=== PATIENT | female | born 1950 | race Caucasian/White ===

== ENCOUNTER → 2021-04-13 17:04 | Outpatient (CLI) | payer MEDICARE, SELFPAY | PROVIDERS: Visit Provider Internal Medicine Gastroenterology | DX: Z01.812 Encounter for preprocedural laboratory examination (principal); Z11.52 Encounter for screening for COVID-19 | CPT/HCPCS: C9803; U0003; U0005 ==

== ENCOUNTER 2024-10-07 21:48 | Emergency (ER) | payer MEDICARE, SELFPAY ==
[2024-10-07 21:58] VITALS: BP 171/84; PULSE 84; RESP 16; TEMP 36.8; O2SAT 95; BMI 19.5
--- NOTE | 2024-10-07 22:15 | CT_ITS ---
PROCEDURE INFORMATION: Exam: CT Abdomen And Pelvis With Contrast Exam date and time: 10/07/2024 11:40 PM Age: 73 years old Clinical indication: Vomiting; Abdominal pain; Other: Right sided; Additional info: R sided severe abd pain, vomiting TECHNIQUE: Imaging protocol: Computed tomography of the abdomen and pelvis with contrast. Radiation optimization: All CT scans at this facility use at least one of these dose optimization techniques: automated exposure control; mA and/or kV adjustment per patient size (includes targeted exams where dose is matched to clinical indication); or iterative reconstruction. Contrast material: ISOVUE; Contrast volume: 75 ml; Contrast route: IV; COMPARISON: No relevant prior studies available. FINDINGS: Liver: No mass. Gallbladder and biliary ducts: Surgically absent gallbladder. Intrahepatic extrahepatic pneumobilia. No radiopaque choledocholithiasis identified. Pancreas: Atrophic pancreas. No ductal dilatation. No mass. Spleen: 3.8 cm splenule. No splenomegaly. Adrenal glands: Normal. No mass. Kidneys and ureters: 0.9 cm right mid ureteral calculus with proximal hydronephroureter. Small right perinephric fluid collection. 4.2 cm right upper pole cyst. 0.5 cm nonobstructive left renal calculus. No hydronephrosis. Stomach and bowel: Nonobstructive pattern. Nonspecific fluid-filled Racquel's pouch. Left lower quadrant ostomy. Appendix: Not visualized. Intraperitoneal space: Unremarkable. No free air. No significant fluid collection. Vasculature: Unremarkable. No abdominal aortic aneurysm. Lymph nodes: Unremarkable. No enlarged lymph nodes. Urinary bladder: Patulous, distended urinary bladder with irregular wall trabeculation, without obvious pericystic fat stranding. Reproductive: Unremarkable as visualized. Bones/joints: Unremarkable. No acute fracture. Soft tissues: Probable postsurgical granulation/scarring of presacral space. IMPRESSION: 1. 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 Nonobstructive left renal calculus. 2. Intrahepatic and extrahepatic pneumobilia, without radiopaque choledocholithiasis, likely reflecting post cholecystectomy changes and incompetent sphincter of Oddi. 3. Distended, patulous, trabeculated urinary bladder without pericystic fat stranding, likely reflecting sequelae of chronic urinary bladder outlet obstruction, without evidence for cystitis. COMMENTS: Consistent with the [employer]'s Incidental Findings Committee white paper (J Am Jose Radiol 2018): Any incidental renal lesion less than 1 cm or classified as too small to characterize, or any incidental cystic renal lesion characterized as simple-appearing, is likely benign. No follow-up imaging is recommended for these lesions per consensus recommendations based on imaging criteria.
[2024-10-07] MEDS: ONDANSETRON 4MG/2ML VIAL 4 MG IV (22:21)
[2024-10-07] MEDS: MORPHINE 4MG/ML SYRINGE 4 MG IV (22:21)
[2024-10-07] MEDS: 0.9 % SODIUM CHLORIDE 1000ML 1,000 ML 999 ML IV (22:21)
[2024-10-07 22:23] LABS: Basophils % 0.3 % (0.1-2.0); Eosinophils % 0.2 % (0.1-12.0); Hematocrit 37.2 % (37.0-47.0); Hemoglobin 13.1 g/dL (12.2-16.2); Immature Granulocytes # 0.05 10^3uL; Immature Granulocytes % 0.4 %; Lymphocytes # 0.3 K/mm3 (0.7-4.5); Mean Corpuscular HGB Conc 35.2 g/dL (31.8-35.4); Mean Corpuscular Volume 88.2 fl (81-99); Mean Platelet Volume 9.7 fl (7.4-10.4); Monocytes # 0.7 K/mm3 (0.1-1.0); Monocytes % 5.8 % (1.7-9.3); Neutrophils # 11.7 K/mm3 (1.8-7.8); Neutrophils % 91.3 % (37.0-80.0); Nucleated Red Blood Cells # 0 10^3/uL; Nucleated Red Blood Cells % 0 %; Platelet Count 161 K/mm3 (142-424); Red Blood Count 4.22 M/mm3 (4.20-5.40); Red Cell Distribution Width 12.7 % (11.5-17.5); Red Cell Distribution Width-SD 40.9 fL; White Blood Count 12.8 K/mm3 (4.8-10.8)
[2024-10-07 22:24] LABS: MANUAL DIFFERENTIAL MANUAL DIFFERENTIAL (MANUAL DIFF)
--- NOTE | 2024-10-07 22:28 | ED_ITS ---
Discharge Plan Disposition Patient Disposition: Xfer Other Chief Complaint: Abdominal Pain Prescriptions Prescriptions: No Action famotidine [Acid Controller] 20 MG Tablet 20 mg PO BID primidone [Mysoline] 50 MG Tablet 50 mg PO HS atorvastatin 20 MG Tablet 20 mg PO DAILY cyanocobalamin (vitamin B-12) 2,500 MCG Tab.Subl 2,500 mcg sublingual DAILY vitamin A 25,000 UNIT Capsule 25,000 unit PO DAILY bisoprolol-hydrochlorothiazide 1 EACH Tablet 1 ea PO DAILY acetaminophen [Tylenol Arthritis Pain] 650 MG Tablet.Er 650 mg PO NEEDED PRN (Reason: pain) meloxicam 7.5 MG Tablet 7.5 mg PO HS potassium 99 MG Tablet 99 mg PO 5XDAY levothyroxine 50 MCG Tablet 50 mcg PO DAILY gabapentin 300 MG Capsule 300 mg PO BID ascorbic acid (vitamin C) 1,000 MG Tab.Chew 1,000 mg PO DAILY ginseng 250 MG Capsule 250 mg PO BID iron 18 MG Tablet 18 mg PO QID esther efxlkt-Qd-wrcCvozayqrt-tea [Apple Cider Vinegar Plus] 1 EACH Tablet 1 ea PO TID metformin [Fortamet] 1,000 MG Tab.Er.24 1,000 mg PO BID duloxetine 30 MG Capsule.Dr 30 mg PO DAILY B complex-vitamin C-folic acid 400 MCG Tablet 400 mcg PO DAILY cholecalciferol (vit D3)(bulk) 2,400 UNIT/ML Liquid 2,400 unit miscellaneous QID turmeric root extract 500 MG Capsule 500 mg PO DAILY calcium carb,gluc-mag gluc,ox [Calcium Magnesium] 1 EACH Tablet 1 ea PO TID ascorbic acid-vitamin E-biotin [Hair, Skin, Nails with Biotin] 1 EACH Tab.Chew 1 ea PO DAILY xssjg-af-9-eue-gzk-vnflcdk-ast [MegaRed [place]-3 Krill Oil] 1 EACH Capsule 1 ea PO DAILY Referrals Follow up/Referrals: Faheem Chase [Primary Care Provider] - See instructions Clinical Impressions Clinical Impression: Hydronephrosis with ureteral calculus, Pyelonephritis Instructions Patient Instructions: DI for Acute Abdominal Pain Print Language Print Language: [place] Island[place] Discharge ED Provider: Neil Steele General Adult HPI <Peter Yu MD - Last Filed: 10/07/24 23:26> General Chief complaint: Abdominal Pain Stated complaint: weakness,pain right side waist line area Time Seen by Provider: 10/07/24 21:56 Mode of Arrival: Wheelchair Source of Information: Patient and Relative Description of Symptoms (Recalled from ER Triage Doc. by RN): pt presents with c/o right sided abd pain that radiates into her back that began x1 day ago. Pt reports associated nausea with no vomiting or diarrhea. 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 Consequentially, this preceding description of symptoms, which may include the patient's categorized chief complaint in the EMR, do not reflect my personal clinical impression, and the ultimate description of history of present illness and patient stated complaints should be deferred to this section of the note. Unless stated otherwise or congruent with this section of the note, additional signs, symptoms, or incongruence should be interpreted as inaccurate with my clinical impression. Related Data Home Medications ?Medication ?Instructions ?Recorded ?Confirmed acetaminophen 650 mg 650 mg PO NEEDED PRN pain 04/11/18 04/11/18 tablet,extended release (Tylenol Arthritis Pain) ascorbic acid (vitamin C) 1,000 mg 1,000 mg PO DAILY Supplement 04/11/18 04/11/18 chewable tablet ascorbic acid 7.5 mg-vit E 7.5 1 ea PO DAILY Supplement 04/11/18 04/11/18 unit-biotin 1,250 mcg chewable tablet (Hair,Skin,Nails with Biotin) atorvastatin 20 mg tablet 20 mg PO DAILY Cholesterol 04/11/18 04/11/18 bisoprolol 10 1 ea PO DAILY blood pressure 04/11/18 04/11/18 mg-hydrochlorothiazide 6.25 mg tablet calcium 500 mg 1 ea PO TID Supplement 04/11/18 04/11/18 (carb,gluconate)-magnesium 250 mg (gluc,oxide) tablet (Calcium Magnesium) cholecalciferol (vit D3)(bulk) 2,400 unit miscellaneous QID 04/11/18 04/11/18 2,400 unit/mL liquid Supplement cider 1 ea PO TID Supplement 04/11/18 04/11/18 mugczqu-Gk-ricxjtxcsbvwnuro-tea 500 mg-100 mcg-300 mg-60 mg tab (Apple Cider Vinegar Plus) cyanocobalamin (vitamin B-12) 2,500 mcg sublingual DAILY 04/11/18 04/11/18 2,500 mcg sublingual tablet Supplement duloxetine 30 mg capsule,delayed 30 mg PO DAILY mood 04/11/18 04/11/18 release famotidine 20 mg tablet (Acid 20 mg PO BID stomach 04/11/18 04/11/18 Controller) gabapentin 300 mg capsule 300 mg PO BID Pain 04/11/18 04/11/18 ginseng 250 mg capsule 250 mg PO BID Supplement 04/11/18 04/11/18 iron 18 mg tablet 18 mg PO QID Supplement 04/11/18 04/11/18 krill 300 mg-omega 3 90 mg-dha 24 1 ea PO DAILY Supplement 04/11/18 04/11/18 mg-epa 50 ql-fyfndfk-lqhxn capsule (MegaRed [place]-3 Krill Oil) levothyroxine 50 mcg tablet 50 mcg PO DAILY thyroid 04/11/18 04/11/18 meloxicam 7.5 mg tablet 7.5 mg PO HS Pain 04/11/18 04/11/18 metformin 1,000 mg tablet,extended 1,000 mg PO BID Diabetes 04/11/18 04/11/18 release 24hr (osmotic) (Fortamet) potassium 99 mg tablet 99 mg PO 5XDAY Supplement 04/11/18 04/11/18 primidone 50 mg tablet (Mysoline) 50 mg PO HS hormones 04/11/18 04/11/18 turmeric root extract 500 mg 500 mg PO DAILY Supplement 04/11/18 04/11/18 capsule vitamin A 7,500 mcg (25,000 unit) 25,000 unit PO DAILY Supplement 04/11/18 04/11/18 capsule vitamin B complex-vitamin C-folic 400 mcg PO DAILY Supplement 04/11/18 04/11/18 acid 400 mcg tablet Allergies Allergy/AdvReac Type Severity Reaction Status Date / Time acetaminophen Allergy Intermediate I-HIVES Verified 04/11/18 09:23 chlorpheniramine Allergy Intermediate I-HIVES Verified 04/11/18 09:23 naproxen Allergy Intermediate I-ITCHING Verified 04/11/18 09:23 pseudoephedrine Allergy Intermediate I-HIVES Verified 04/11/18 09:23 guaifenesin Allergy Unknown Verified 04/11/18 09:23 [facility] <Peter Yu MD - Last Filed: 10/07/24 23:26> [facility] Disclaimer: The information contained in this section may have been updated after the patient was seen, as this information can be updated by other users. Social History (Updated 10/07/24 @ 23:26 by Peter Yu MD) Smoking Status: Never smoker alcohol intake: never current occupational status: retired Travel in the last 8 weeks?: None caffeine: No Have you lived/traveled outside [place] in past 30 days?: No Contact w/someone who lives/traveled outside US past 30 days?: No Exposure to someone with infectious disease in past 14 days?: No Do you have a fever (greater than 100.4 F or 38 C)?: No Have you tested positive for COVID-19?: No Exposed to someone with COVID-19 in past 14 days?: No Do you have a sore throat?: No Do you have a cough?: No Do you have any weakness?: Yes Do you have any diarrhea?: No Are you experiencing any unusual bleeding?: No Do you have any muscle aches/pain?: No Do you have any abdominal pain?: No Are you experiencing loss of taste or smell?: No <Peter Yu MD - Last Filed: 10/07/24 23:26> ROS Obtained: Yes All systems reviewed & no additional complaints except as documented Physical Exam <Peter Yu MD - Last Filed: 10/07/24 23:26> General General appearance: alert Head Head exam: atraumatic and normocephalic Eye Eye exam: Present normal appearance, PERRL and EOMI Neck Neck exam: Present normal inspection, full ROM and trachea midline Respiratory Respiratory exam: Absent respiratory distress, wheezes, stridor, accessory muscle use or prolonged expiratory phase Cardiovascular Cardiovascular exam: Present other (Pulses equal symmetric in upper and lower extremities) Abdominal Exam Abdominal exam: Present soft; Absent distention, tenderness or pulsatile mass Extremities Exam Extremities exam: Absent edema Neurological Exam Neurological exam: Present alert, oriented X3 and CN II-XII intact; Absent motor sensory deficit Skin Skin exam: Present warm and dry; Absent diaphoresis or erythema Medical Decision Making <Peter Yu MD - Last Filed: 10/07/24 23:26> Medical Records Medical records reviewed: Yes I reviewed the patient's medical records. Screening: Per USPSTF and CDC recommendations, given the prevalence of disease in our region, it is our hospital?s policy to screen for HIV and viral Hepatitis for all patients aged 18 and over and those with ongoing risk factors. Edson Inquiry Pt receiving controlled substance: No Edson was queried for this patient: No Vital Signs: 10/07/24 21:58 10/07/24 23:30 Temperature 98.3 F Temperature Source Oral Pulse Rate 90 Pulse Rate [Radial] 84 Respiratory Rate 16 Blood Pressure 161/88 H Blood Pressure [Right Arm] 171/84 H Blood Pressure Mean [Right Arm] 113 Blood Pressure Position [Right Arm] Sitting 02 Sat by Pulse Oximetry 95 100 Oxygen Delivery Method Room Air Lab Data Lab Results 10/07/24 22:04: WBC 12.8 H, RBC 4.22, Hgb 13.1, Hct 37.2, MCV 88.2, MCH 31.0, MCHC 35.2, RDW 12.7, Plt Count 161, MPV 9.7, Neut % (Auto) 91.3 H, Lymph % (Auto) 2.0 L, [place] % (Auto) 5.8, Eos % (Auto) 0.2, Baso % (Auto) 0.3, Neut # (Auto) 11.7 H, Lymph # (Auto) 0.3 L, [place] # (Auto) 0.7, Eos # (Auto) 0.0, Baso # (Auto) 0.0, Total Counted 100, Neutrophils % (Manual) 88 H, Lymphocytes % (Manual) 3 L, Monocytes % (Manual) 8, Eosinophils % (Manual) 1, Platelet Estimate Normal, RBC Morphology Normal, PT 10.9, INR 0.97, APTT 27.5, Sodium 130 L, Potassium 4.3, Chloride 103, Carbon Dioxide 19 L, Anion Gap 12.3, BUN 26 H, C reatinine 2.10 H, Estimated Creat Clear 19, Estimated GFR 23 L, Est GFR ( Amer) 28 L, Glucose 331 H, Hemoglobin A1c 7.7 H, Calcium 8.9, Magnesium 1.1 L, Total Bilirubin 0.9, AST 29, ALT 33, Alkaline Phosphatase 161 H, Troponin I < 0.01, Total Protein 7.5, Albumin 4.3, Globulin 3.2, Albumin/Globulin Ratio 1.3, Triglycerides 109, Cholesterol 129 L, LDL Cholesterol Direct 30.98 L, VLDL Cholesterol 22, HDL Cholesterol 61 H, Cholesterol/HDL Ratio 2.1, Lipase 49, HCV Ab JAELYN w/Rflx PCR Qn Reactive, HIV Ag/Ab Combo Qual Negative 10/08/24 00:05: Urine Color Yellow, Urine Appearance Clear, Urine pH 6.0, Ur Specific [place] 1.015, Urine Protein 1+ A, Urine Glucose (UA) 3+, Urine Ketones Negative, Urine Blood 3+ A, Urine Nitrate Negative, Urine Bilirubin Negative, Urine Urobilinogen 0.2, Ur Leukocyte Esterase 2+ A, Urine RBC 5-10, Urine WBC 50-100, Ur Squamous Epith Cells None, Ur Transition Epith Cell Occ, Urine Bacteria Trace, Urine Yeast 3+ 10/07/24 22:04 10/07/24 22:04 Orders (Tests/Meds): ED MEDICATIONS Generic Name Dose Route Start Last Admin Trade Name Freq PRN Reason Stop Dose Admin Ceftriaxone Sodium 2 gm/ 100 mls @ 200 mls/hr 10/08/24 00:32 10/08/24 00:34 Sodium Chloride IV 10/08/24 01:01 200 mls/hr ONCE ONE Administration Discontinued Medications Generic Name Dose Route Start Last Admin Trade Name Freq PRN Reason Stop Dose Admin Sodium Chloride 1,000 mls @ 999 mls/hr 10/07/24 22:14 10/07/24 22:21 Sod Chlor 0.9% 1000ml Bag IV 10/07/24 23:14 999 mls/hr .Q1H1M ONE Administration Lactated Ringer's 1,000 mls @ 999 mls/hr 10/07/24 22:37 10/07/24 22:40 Lactated Ringer's 1000 Ml Bag IV 10/07/24 23:37 999 mls/hr .Q1H1M ONE Administration Iopamidol 75 ml 10/07/24 23:47 10/07/24 23:49 Iopamidol-370 (76%);100ml Bottle IV 10/07/24 23:48 75 ml ONCE ONE Administration Morphine Sulfate 4 mg 10/07/24 22:14 10/07/24 22:21 Morphine 4mg/Ml Syringe IV 10/07/24 22:15 4 mg ONCE ONE Administration Ondansetron HCl 4 mg 10/07/24 22:14 10/07/24 22:21 Ondansetron 4mg/2ml Vial IV 10/07/24 22:15 4 mg ONCE ONE Administration Sodium Chloride 10 ml 10/07/24 23:47 10/07/24 23:49 Sodium Chloride 0.9% 10ml Syr (Rad Only) IV 10/07/24 23:48 10 ml ONCE ONE Administration ORDERS Category Date Time Status CT abdomen pelvis w con Stat Cat Scan 10/07/24 22:15 Completed Complete Blood Count Auto Diff Stat Lab 10/07/24 22:04 Completed Comprehensive Metabolic Panel Stat Lab 10/07/24 22:04 Completed HCV RNA PCR, Quant Stat Lab 10/07/24 22:04 Received HIV Combo Stat Lab 10/07/24 22:04 Completed Hemoglobin A1C Stat Lab 10/07/24 22:04 Completed Hepatitis C Ab Qual. W/ RFX Stat Lab 10/07/24 22:04 Completed Lipase Stat Lab 10/07/24 22:04 Completed Lipid Panel Stat Lab 10/07/24 22:04 Completed Magnesium Stat Lab 10/07/24 22:04 Completed PT INR [Prothrombin Time INR] Stat Lab 10/07/24 22:04 Completed PTT [Activated Partial Thrombo Time] Stat Lab 10/07/24 22:04 Completed Troponin I Q3H Lab 10/08/24 01:15 Ordered Troponin I Q3H Lab 10/08/24 04:15 Ordered Troponin I Stat Lab 10/07/24 22:04 Completed Urinalysis and Microscopic Stat Lab 10/08/24 00:05 Completed Blood Culture Stat Micro 10/07/24 22:30 Received Urine Culture Stat Micro 10/08/24 00:05 Received Medical Decision Narrative: 73-year-old female history of hypertension, hyperlipidemia, diabetes, colon cancer status post colonic resection, ileostomy with history of revision, Whipple, appendectomy presenting with abdominal pain. She states that yesterday, 10/06 she was doing nothing in particular sitting down when she had this right sided abdominal pain that radiates into her right flank. No vomiting, but she has been nauseous with decreased p.o. intake. Still having ostomy output, but she states that this been thicker than what she is used to. No blood in her ostomy output. No fevers or chills, urinary symptoms, or any other concerns. Waxes and wanes, currently severe in intensity made worse with application of pressure. When not applying pressure or turning, mild in intensity. History was obtained via conversation with patient. On arrival, patient hemodynamically stable, alert, oriented x4, appropriate, GCS 15, moving all extremities spontaneously, pupils equal and reactive to light. Full physical exam performed and significant for chronically ill-appearing female no acute distress. Abdomen is soft, nontender, nondistended. Ostomy appears completely normal. Minimal abdominal tenderness on my application of pressure. Differential includes PUD, gastritis, enteritis, gastroenteritis, pancreatitis, SBO, colitis, diverticulitis, nephrolithiasis, UTI, cholecystitis, choledocholithiasis, appendicitis, torsion, hepatitis, aortic pathology, mesenteric ischemia among others. Patient placed on continuous cardiac monitoring and continuous pulse ox with initial blood pressure 171/84, heart rate 84, saturation 5% on room air. Patient was given Zofran, morphine, fluids for symptomatic management and correction of underlying abnormalities. Workup independently interpreted and significant for leukocytosis 12.8. Patient's chemistry with hyponatremia 130, VINOD with creatinine 2.1 and BUN 26. Patient's A1c elevated 7.7. Troponin negative. LFTs nonactionable. Lipase negative. Given VINOD, patient was given 2 L of fluids. Prior to CT imaging, care handed off to oncoming physician. Manager Plant disclaimer Much of this encounter note is an electronic milking machine mechanic spoken language to printed text. Electronic milking machine mechanic of the spoken language may permit errors. Although I have reviewed the note, some errors may still exist. <Neil Steele MD - Last Filed: 10/08/24 00:50> Vital Signs: 10/07/24 21:58 10/07/24 23:30 Temperature 98.3 F Temperature Source Oral Pulse Rate 90 Pulse Rate [Radial] 84 Respiratory Rate 16 Blood Pressure 161/88 H Blood Pressure [Right Arm] 171/84 H Blood Pressure Mean [Right Arm] 113 Blood Pressure Position [Right Arm] Sitting 02 Sat by Pulse Oximetry 95 100 Oxygen Delivery Method Room Air Lab Data Lab Results 10/07/24 22:04: WBC 12.8 H, RBC 4.22, Hgb 13.1, Hct 37.2, MCV 88.2, MCH 31.0, MCHC 35.2, RDW 12.7, Plt Count 161, MPV 9.7, Neut % (Auto) 91.3 H, Lymph % (Auto) 2.0 L, [place] % (Auto) 5.8, Eos % (Auto) 0.2, Baso % (Auto) 0.3, Neut # (Auto) 11.7 H, Lymph # (Auto) 0.3 L, [place] # (Auto) 0.7, Eos # (Auto) 0.0, Baso # (Auto) 0.0, Total Counted 100, Neutrophils % (Manual) 88 H, Lymphocytes % (Manual) 3 L, Monocytes % (Manual) 8, Eosinophils % (Manual) 1, Platelet Estimate Normal, RBC Morphology Normal, PT 10.9, INR 0.97, APTT 27.5, Sodium 130 L, Potassium 4.3, Chloride 103, Carbon Dioxide 19 L, Anion Gap 12.3, BUN 26 H, C reatinine 2.10 H, Estimated Creat Clear 19, Estimated GFR 23 L, Est GFR ( Amer) 28 L, Glucose 331 H, Hemoglobin A1c 7.7 H, Calcium 8.9, Magnesium 1.1 L, Total Bilirubin 0.9, AST 29, ALT 33, Alkaline Phosphatase 161 H, Troponin I < 0.01, Total Protein 7.5, Albumin 4.3, Globulin 3.2, Albumin/Globulin Ratio 1.3, Triglycerides 109, Cholesterol 129 L, LDL Cholesterol Direct 30.98 L, VLDL Cholesterol 22, HDL Cholesterol 61 H, Cholesterol/HDL Ratio 2.1, Lipase 49, HCV Ab JAELYN w/Rflx PCR Qn Reactive, HIV Ag/Ab Combo Qual Negative 10/08/24 00:05: Urine Color Yellow, Urine Appearance Clear, Urine pH 6.0, Ur Specific [place] 1.015, Urine Protein 1+ A, Urine Glucose (UA) 3+, Urine Ketones Negative, Urine Blood 3+ A, Urine Nitrate Negative, Urine Bilirubin Negative, Urine Urobilinogen 0.2, Ur Leukocyte Esterase 2+ A, Urine RBC 5-10, Urine WBC 50-100, Ur Squamous Epith Cells None, Ur Transition Epith Cell Occ, Urine Bacteria Trace, Urine Yeast 3+ Orders (Tests/Meds): ED MEDICATIONS Generic Name Dose Route Start Last Admin Trade Name Freq PRN Reason Stop Dose Admin Ceftriaxone Sodium 2 gm/ 100 mls @ 200 mls/hr 10/08/24 00:32 10/08/24 00:34 Sodium Chloride IV 10/08/24 01:01 200 mls/hr ONCE ONE Administration Discontinued Medications Generic Name Dose Route Start Last Admin Trade Name Barbara PRN Reason Stop Dose Admin Sodium Chloride 1,000 mls @ 999 mls/hr 10/07/24 22:14 10/07/24 22:21 Sod Chlor 0.9% 1000ml Bag IV 10/07/24 23:14 999 mls/hr .Q1H1M ONE Administration Lactated Ringer's 1,000 mls @ 999 mls/hr 10/07/24 22:37 10/07/24 22:40 Lactated Ringer's 1000 Ml Bag IV 10/07/24 23:37 999 mls/hr .Q1H1M ONE Administration Iopamidol 75 ml 10/07/24 23:47 10/07/24 23:49 Iopamidol-370 (76%);100ml Bottle IV 10/07/24 23:48 75 ml ONCE ONE Administration Morphine Sulfate 4 mg 10/07/24 22:14 10/07/24 22:21 Morphine 4mg/Ml Syringe IV 10/07/24 22:15 4 mg ONCE ONE Administration Ondansetron HCl 4 mg 10/07/24 22:14 10/07/24 22:21 Ondansetron 4mg/2ml Vial IV 10/07/24 22:15 4 mg ONCE ONE Administration Sodium Chloride 10 ml 10/07/24 23:47 10/07/24 23:49 Sodium Chloride 0.9% 10ml Syr (Rad Only) IV 10/07/24 23:48 10 ml ONCE ONE Administration ORDERS Category Date Time Status CT abdomen pelvis w con Stat Cat Scan 10/07/24 22:15 Completed Complete Blood Count Auto Diff Stat Lab 10/07/24 22:04 Completed Comprehensive Metabolic Panel Stat Lab 10/07/24 22:04 Completed HCV RNA PCR, Quant Stat Lab 10/07/24 22:04 Received HIV Combo Stat Lab 10/07/24 22:04 Completed Hemoglobin A1C Stat Lab 10/07/24 22:04 Completed Hepatitis C Ab Qual. W/ RFX Stat Lab 10/07/24 22:04 Completed Lipase Stat Lab 10/07/24 22:04 Completed Lipid Panel Stat Lab 10/07/24 22:04 Completed Magnesium Stat Lab 10/07/24 22:04 Completed PT INR [Prothrombin Time INR] Stat Lab 10/07/24 22:04 Completed PTT [Activated Partial Thrombo Time] Stat Lab 10/07/24 22:04 Completed Troponin I Q3H Lab 10/08/24 01:15 Ordered Troponin I Q3H Lab 10/08/24 04:15 Ordered Troponin I Stat Lab 10/07/24 22:04 Completed Urinalysis and Microscopic Stat Lab 10/08/24 00:05 Completed Blood Culture Stat Micro 10/07/24 22:30 Received Urine Culture Stat Micro 10/08/24 00:05 Received Medical Decision Narrative: 73-year-old female history of hypertension, hyperlipidemia, diabetes, colon cancer status post colonic resection, ileostomy with history of revision, Whipple, appendectomy presenting with abdominal pain. She states that yesterday, 10/06 she was doing nothing in particular sitting down when she had this right sided abdominal pain that radiates into her right flank. No vomiting, but she has been nauseous with decreased p.o. intake. Still having ostomy output, but she states that this been thicker than what she is used to. No blood in her ostomy output. No fevers or chills, urinary symptoms, or any other concerns. Waxes and wanes, currently severe in intensity made worse with application of pressure. When not applying pressure or turning, mild in intensity. History was obtained via conversation with patient. On arrival, patient hemodynamically stable, alert, oriented x4, appropriate, GCS 15, moving all extremities spontaneously, pupils equal and reactive to light. Full physical exam performed and significant for chronically ill-appearing female no acute distress. Abdomen is soft, nontender, nondistended. Ostomy appears completely normal. Minimal abdominal tenderness on my application of pressure. Differential includes PUD, gastritis, enteritis, gastroenteritis, pancreatitis, SBO, colitis, diverticulitis, nephrolithiasis, UTI, cholecystitis, choledocholithiasis, appendicitis, torsion, hepatitis, aortic pathology, mesenteric ischemia among others. Patient placed on continuous cardiac monitoring and continuous pulse ox with initial blood pressure 171/84, heart rate 84, saturation 5% on room air. Patient was given Zofran, morphine, fluids for symptomatic management and correction of underlying abnormalities. Workup independently interpreted and significant for leukocytosis 12.8. Patient's chemistry with hyponatremia 130, VINOD with creatinine 2.1 and BUN 26. Patient's A1c elevated 7.7. Troponin negative. LFTs nonactionable. Lipase negative. Given VINOD, patient was given 2 L of fluids. Prior to CT imaging, care handed off to oncoming physician. Manager Plant disclaimer Much of this encounter note is an electronic milking machine mechanic spoken language to printed text. Electronic milking machine mechanic of the spoken language may permit errors. Although I have reviewed the note, some errors may still exist. Ivette CADENA: I assumed care of the patient at the time of handoff from the prior provider. On reassessment patient remains hemodynamically stable. On my independent interpretation, CT imaging shows a large 8 x 8 x 6 obstructing mid ureteral stone on the right with associated hydronephrosis and perinephric stranding. Urinalysis independently interpreted by me shows concern for infection with 50- 100 WBCs and 3+ yeast. Patient was initiated on IV ceftriaxone and fluconazole for presumed septic stone. Interact discussion was had with the [facility] and their urology team. Patient requires transfer for urologic intervention. Accepting is Dr. Lee. Critical Care <Peter Yu MD - Last Filed: 10/07/24 23:26> Critical Care Time Critical Care Time: No <Neil Steele MD - Last Filed: 10/08/24 00:50> Critical Care Time Critical Care Time: Yes Attestation: On 10/07/24, the high probability of a clinically significant, sudden or life threatening deterioration of the following system(s) required my full and direct attention, intervention and personal management. The time I documented below is in addition to time spent performing reported procedures but includes the following listed in this critical care notation. Total Time Total Critical Care Time: 45
[2024-10-07 22:29] LABS: Albumin Level 4.3 g/dl (3.5-5.0)
[2024-10-07 22:30] LABS: Chloride 103 mmol/L (98-107); Potassium 4.3 mmoL/L (3.5-5.1); Sodium 130 mmol/L (136-145)
[2024-10-07 22:32] LABS: Alanine Aminotransferase 33 U/L (12-78); Albumin/Globulin Ratio 1.3 (1.1-1.8); Alkaline Phosphatase 161 U/L (38-126); Anion Gap 12.3 mEq/L (5-15); Aspartate Amino Transferase 29 U/L (14-36); Bilirubin,Total 0.9 mg/dl (0.2-1.3); Blood Urea Nitrogen 26 mg/dl (7-17); Calcium 8.9 mg/dl (8.4-10.2); Carbon Dioxide 19 mmol/L (22.0-30.0); Cholesterol 129 mg/dl (140-200); Creatinine Clearance Estimated 19 mL/min (50-200); Estimated Glomerular Filt Rate 23 ml/min (>60); GFR (African American) 28 ML/MIN (>60); Globulin 3.2 g/dL (1.3-3.2); Glucose 331 mg/dl (74-100); Lipase 49 U/L (23-300); Magnesium 1.1 mg/dl (1.6-2.3); Total Protein,Serum 7.5 g/dl (6.3-8.2); Triglycerides 109 mg/dl (30-150); VLDL Cholesterol 22 mg/dL (0-40)
[2024-10-07 22:33] LABS: Chol/HDL Ratio 2.1 (1-3.5); HDL Cholesterol 61 mg/dl (40-60)
[2024-10-07] MEDS: LACTATED RINGERS 1000ML 1,000 ML 999 ML IV (22:40)
[2024-10-07 22:43] LABS: Direct LDL Cholesterol 30.98 mg/dL (100-129); Eosinophils % 1 % (0-3); Lymphocytes % 3 % (10-50); Monocytes % 8 % (2-9); Neutrophils % 88 % (42-76); Platelet Estimate Normal; RBC Morphology Normal; Total Cells Counted 100
[2024-10-07 22:45] LABS: Hemoglobin A1C 7.7 % (4.0-6.0)
[2024-10-07 22:46] LABS: Troponin I < 0.01 ng/ml (0.00-0.034)
[2024-10-07 23:03] LABS: HIV Combo NEGATIVE (Negative)
[2024-10-07 23:11] LABS: Hepatitis C Ab Qual. W/ RFX REACTIVE (Negative)
[2024-10-07 23:30] VITALS: BP 161/88; PULSE 90; O2SAT 100
[2024-10-07 23:31] LABS: Activated Partial Thrombo Time 27.5 seconds (22.8-30.6); INR 0.97 (0.9-1.1); Prothrombin Time 10.9 seconds (10.1-12.5)
--- NOTE | 2024-10-07 23:44 | PC.NURSE ---
Pt back to assigned room from ct
--- NOTE | 2024-10-07 23:48 | PC.NURSE ---
provider at the bedside
[2024-10-07] MEDS: IOPAMIDOL-370 (76%);100ML BOTTLE 75 ML IV (23:49)
[2024-10-07] MEDS: SODIUM CHLORIDE 0.9% 10ML SYR (RAD ONLY) 10 ML IV (23:49)
[2024-10-08 00:10] LABS: Microscopic, Urine URINE MICROSCOPIC (MICROSCOPIC)
[2024-10-08 00:11] LABS: Appearance,Urine CLEAR (Clear); Bilirubin,Urine Negative (Negative); Blood, Urine 3+ (Negative); Color,Urine YELLOW (Yellow); Glucose,Urine (UA) 3+ (Negative); Ketones,Urine Negative (Negative); Leukocyte Esterase,Urine 2+ (Negative); Nitrate,Urine Negative (Negative); Protein,Urine 1+ (Negative); Specific Gravity, Urine 1.015 (1.005-1.030); Urobilinogen,Urine 0.2 EU/dl (0.2)
[2024-10-08 00:22] LABS: Transitional Epi Cells,Urine OCC #/lpf (0-3); WBC,Urine 50-100 #/hpf (0-3)
[2024-10-08 00:23] LABS: Bacteria,Urine Trace /lpf
[2024-10-08 00:24] LABS: Yeast,Urine 3+ /lpf
[2024-10-08] MEDS: CEFTRIAXONE SODIUM 2 GM in 0.9 % SODIUM CHLORIDE 100 ML IV (00:34)
--- NOTE | 2024-10-08 00:35 | PC.NURSE ---
LR paused in order to intiate rocephine
--- NOTE | 2024-10-08 00:38 | PC.NURSE ---
Spoke with Karen about transferring this pt. we are awaiting a call back as soon as their transferring doctor is ready.
--- NOTE | 2024-10-08 00:40 | PC.NURSE ---
speaking with transferring doctor now.
[2024-10-08] MEDS: FLUCONAZOLE IN NACL,ISO-OSM 400 MG/200 ML BAG IV (00:53)
--- NOTE | 2024-10-08 01:00 | PC.NURSE ---
report given to Terra BARRAZA at ED
--- NOTE | 2024-10-08 01:26 | PC.NURSE ---
Spoke with [facility], they should be coming to transfer this pt in just a few minutes.
[2024-10-08 01:40] VITALS: BP 154/80; PULSE 101; RESP 16; TEMP 36.8; O2SAT 93
== END 2024-10-08 01:47 | disposition other institution (70) ==
PROVIDERS: Emergency Medicine; Emergency Provider Emergency Medicine; PCP Internal Medicine
DX: N13.0 Hydronephrosis with ureteropelvic junction obstruction (principal); N10 Acute pyelonephritis; R10.31 Right lower quadrant pain; N13.4 Hydroureter; E87.1 Hypo-osmolality and hyponatremia; N20.0 Calculus of kidney; R11.0 Nausea; E11.65 Type 2 diabetes mellitus with hyperglycemia; Z11.59 Encounter for screening for other viral diseases; Z11.4 Encounter for screening for human immunodeficiency virus [HIV]
CPT/HCPCS: 74177; 80053; 80061; 81001; 83036; 83690; 83735; 84484; 85007; 85025; 85027; 85610; 85730; 86803; 87040; 87086; 87389; 87522; 96361; 96365; 96367; 96375; 99291; J0696; J1450; J2270; J2405; J7030; J7120; Q9967